=== PATIENT | male | born 1940 | race Caucasian/White ===

== ENCOUNTER → 2019-11-07 08:14 | Outpatient (REF) | payer MEDICARE, OTHER, SELFPAY | LOC: ANHLAB 08:14 | PROVIDERS: PCP Internal Medicine; Visit Provider Nurse Practitioner Family | DX: C44.222 Squamous cell carcinoma of skin of right ear and external auricular canal (principal) | CPT/HCPCS: 88305; 88331 ==

== ENCOUNTER 2020-11-07 17:01 | Emergency (ER) | payer MEDICARE, SELFPAY ==
--- NOTE | ~2020-11-07 | XR_ITS ---
XR knee RT 3V 11/07/2020 17:40 Indication: Right knee pain Procedure: 3 views right knee Comparison: No prior studies for comparison. 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 There is chondrocalcinos is. No acute fracture or traumatic malalignment. No significant joint effusion. Osteopenia. Impression: 1: No acute fracture. Reviewed, dictated and finalized at location A. PTIONIST TELEPHONE OPERATOR Impression: 1: No acute fracture.
--- NOTE | 2020-11-07 17:05 | ED.GENADULT ---
HPI - General Adult General Chief complaint: Extremity Injury, Lower Stated complaint: Twisted right knee Time Seen by Provider: 11/07/20 17:05 Source: patient Mode of arrival: ambulatory Limitations: no limitations History of Present Illness HPI narrative: 80-year-old male patient presents to the [facility] with complaints of right knee pain since yesterday. Patient states he went to go and get stand up at a table and states that he twisted his right knee. Patient states he has been using his walker at home to get around but states it does hurt when walking on the right knee. Patient states it mostly hurts on the lateral side of the knee. Patient denies any numbness or tingling down the leg. Patient states he has tried taking Excedrin as well as some arthritis pain medication [id number] which has not helped. Patient states he has iced it twice since the injury yesterday. Denies any history of knee replacements or knee surgeries. Related Data Home Medications Medication Instructions Recorded Confirmed acetaminophen 500 mg tablet 500 mg PO Q6H PRN 11/07/19 carvedilol 3.125 mg tablet 3.125 mg PO Q12H 11/07/19 lisinopril 10 mg tablet 10 mg PO DAILY 11/07/19 11/07/20 nitroglycerin 0.4 mg sublingual 0.4 mg SUBLINGUAL Q5M PRN 11/07/19 11/07/20 tablet pantoprazole 40 mg tablet,delayed 40 mg PO QAM 11/07/19 11/07/20 release simvastatin 20 mg tablet 20 mg PO DAILY 11/07/19 11/07/20 tamsulosin 0.4 mg capsule 0.4 mg PO DAILY 11/07/19 11/07/20 aspirin-dipyridamole 25 cap PO DAILY 11/07/20 11/07/20 aspirin-dipyridamole cap PO 11/07/20 finasteride 5 mg PO DAILY 11/07/20 11/07/20 Allergies Allergy/AdvReac Type Severity Reaction Status Date / Time Penicillins Allergy Rash Verified 11/14/19 15:59 Review of Systems Review of Systems: Narrative: CONSTITUTIONAL: Denies fever, chills, or sweats. EYES: Denies visual changes, redness, or discharge. ENT: Denies rhinorrhea, congestion, sore throat, or otalgia. CARDIOVASCULAR: Denies chest pain, palpitations, or edema. RESPIRATORY: Denies cough or dyspnea. GASTROINTESTINAL: Denies abdominal pain, nausea, vomiting, or diarrhea. GENITOURINARY: Denies dysuria or hematuria. SKIN: Denies rash or itching. MUSCULOSKELETAL: Denies back pain, joint pain, or myalgia. Positive right knee pain NEUROLOGIC: Denies headache, numbness, or weakness. PSYCHIATRIC: Denies anxiety or depression. [facility] Past Medical History Medical History (Updated 11/07/20 @ 17:58 by AVA Calvert) Enlarged prostate Heart disease High cholesterol Hypertension Social History Social History Smoking status: Never smoker Alcohol intake: never Substance use: never Gender identity (if verbalized by the patient): Male Comments At the time of my signature I agree with nursing past medical history, surgical, social, and family history. There is no relevant family history pertinent to the presenting complaint. Exam Narrative: Exam Narrative: GENERAL: Well-appearing, well-nourished, and in no acute distress. HEAD: Normocephalic, atraumatic. EYES: PERRLA and EOMI. ENT: Nares clear, no rhinorrhea or epistaxis. Mucous membranes moist. NECK: Supple. No lymphadenopathy CHEST: Clear to auscultation. No respiratory distress. HEART: Regular rate and rhythm. No murmur heard. Normal peripheral pulses. ABDOMEN: Soft, nontender, nondistended, normal active bowel sounds. EXTREMITIES: Patient is unable to bear weight and ambulate without pain to right knee. No surface trauma, STS, or obvious effusion. No overlying erythema or warmth. The R knee is without obvious asymmetry or deformity when compared to the L knee. Patient is able to do deep knee bend with symmetry, patient does have pain with fully extend knee, internal and external rotation. No tendernss to palpation of the patella, no obvious effusion or ballottement. No tenderness over the infrapatellar tend
[2020-11-07 17:21] VITALS: BP 151/77; PULSE 69; RESP 18; TEMP 37; O2SAT 99
== END 2020-11-07 18:08 | disposition home or self-care (01) ==
PROVIDERS: Emergency Provider Nurse Practitioner Family; PCP Internal Medicine
DX: M23.91 Unspecified internal derangement of right knee (principal); E78.00 Pure hypercholesterolemia, unspecified; I10 Essential (primary) hypertension; N40.0 Benign prostatic hyperplasia without lower urinary tract symptoms
CPT/HCPCS: 73562; 99213; G0463

== ENCOUNTER 2022-12-17 20:46 | Emergency (ER) | payer MEDICARE, SELFPAY ==
--- NOTE | ~2022-12-17 | CT_ITS ---
EXAMINATION: CT brain wo con DATE: 12/17/2022 21:37 INDICATION: TIA. Numbness. TECHNIQUE: Computed tomography (CT) of the head was performed without intravenous contrast. The dose- length product was 605.33 mGy-cm. Automated exposure control and iterative reconstruction technique w ere employed. COMPARISON: None FINDINGS: Generalized atrophy. 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 Chronic right occi pital lobe infarction. Chronic right cerebellar infarctions. There is intracranial atherosclerosis. N o ventriculomegaly or midline shift. Basilar cisterns are patent. Paranasal sinuses and mastoids are pneumatized. There are metallic structures in the right orbit, possibly foreign bodies or postsurgica l change. Mastoids are pneumatized. No depressed skull fractures. IMPRESSION: 1. No acute intracranial abnormality. 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 3: Chronic age-related findings. Reviewed, dictated and finalized at location A.
[2022-12-17 20:48] VITALS: BP 172/70; PULSE 57; RESP 16; TEMP 36.3; O2SAT 99
[2022-12-17 20:52] LABS: Glucose Point of Care 85 mg/dl (65-105)
--- NOTE | 2022-12-17 20:53 | ECG_ITS ---
Measurements Intervals [place] Rate: 58 P: 87 CT: 215 QRS: 57 QRSD: 98 T: 62 QT: 395 QTc: 388 Interpretive Statements SINUS BRADYCARDIA WITH FIRST DEGREE AV BLOCK EARLY PRECORDIAL R/S TRANSITION CONSIDER INFERIOR INFARCT, AGE INDETERMINATE ABNORMAL ECG NO PREVIOUS ECG AVAILABLE FOR COMPARISON Electronically Signed On 12-18-2022 8:05:40 CDT by Hector Romeo D.O.
[2022-12-17 21:12] LABS: Basophils Percent Auto 0.4 % (0.2-1.2); Eosinophils Absolute Auto 0.3 K/mm3 (0-0.3); Eosinophils Percent Auto 3.4 % (0-4.4); Hematocrit 42.9 % (42.0-52.0); Hemoglobin 14.1 g/dL (14.0-18.0); Immature Granulocyte Absolute 0.02 K/mm3 (0.00-0.031); Immature Granulocyte Percent A 0.2 % (0-0.5); Immature Platelet Fraction Pct 1.4 % (0.9-11.2); Lymphocytes Absolute Auto 5.41 K/mm3 (0.9-3.2); Lymphocytes Percent Auto 59.7 % (18.3-44.2); Mean Corpuscular HGB Conc 32.9 g/dl (32-36); Mean Corpuscular Hemoglobin 32.6 pg (26-34); Mean Corpuscular Volume 99.1 fl (80-100); Mean Platelet Volume 8.9 fl (7.4-10.4); Monocytes Absolute Auto 0.7 K/mm3 (0.1-0.6); Monocytes Percent Auto 7.6 % (2.6-8.5); Neutrophils Absolute Auto 2.6 K/mm3 (1.3-6.7); Neutrophils Percent Auto 28.7 % (45.5-73.1); Platelet Count Result 148 k/mm3 (150-375); Red Blood Count 4.33 M/mm3 (4.6-6.20); Red Cell Distribution Width 13.9 % (11.5-14.5); White Blood Count 9.1 K/mm3 (4.5-10.0)
[2022-12-17 21:21] LABS: Alanine Aminotransferase 24 U/L (6-50); Alkaline Phosphatase 102 U/L (38-126); Anion Gap 4 mmol/L (8-16); Aspartate Amino Transferase 29 U/L (17-59); Bilirubin,Total 0.6 mg/dL (0.2-1.3); Blood Urea Nitrogen 17 mg/dL (9-20); Calcium 9.2 mg/dL (8.4-10.2); Carbon Dioxide 31 mmol/L (22-30); Chloride 108 mmol/L (98-107); Estimated CRCL calculation 58 ml/min; Estimated Glomerular Filt Rate > 60; Glucose 75 mg/dL (65-110); Sodium 143 mmol/L (137-145)
[2022-12-17 21:22] LABS: INR 1.2; Prothrombin Time 14.9 Seconds (11.1-14.7)
[2022-12-17 21:23] LABS: Partial Thromboplastin Time 35.6 SECONDS (22.3-36.8)
[2022-12-17 21:32] LABS: Troponin I < 0.012 ng/mL (0.000-0.034)
--- NOTE | 2022-12-17 21:52 | ED.GENADULT ---
HPI - General Adult General Chief complaint: Neuro Symptoms/Deficit Stated complaint: possible TIA, finger numbness Time Seen by Provider: 12/17/22 23:20 History of Present Illness HPI narrative: This is an 82-year-old male with multiple TIAs in the past with the ED with word finding difficulty and numbness over the 2nd and 3rd finger in his right hand. This occurred at 5:00 p.m. today. At this time he does not currently have symptoms. He has been asymptomatic since then. Patient has had multiple TIAs in the past. He is on Eliquis and ASA/dipyridamole. No other complaints this time. Related Data Home Medications Medication Instructions Recorded Confirmed acetaminophen 500 mg tablet 500 mg PO Q6H PRN 11/07/19 (Tylenol Extra Strength) carvedilol 3.125 mg tablet 3.125 mg PO Q12H 11/07/19 lisinopril 10 mg tablet 10 mg PO DAILY 11/07/19 11/07/20 nitroglycerin 0.4 mg sublingual 0.4 mg sublingual Q5M PRN Chest 11/07/19 11/07/20 tablet Pain pantoprazole 40 mg tablet,delayed 40 mg PO QAM 11/07/19 11/07/20 release simvastatin 20 mg tablet 20 mg PO DAILY 11/07/19 11/07/20 tamsulosin 0.4 mg capsule 0.4 mg PO DAILY 11/07/19 11/07/20 aspirin 25 mg-dipyridamole 200 mg 25 cap PO DAILY 11/07/20 11/07/20 capsule,ext.release 12 hr multiphase aspirin 25 mg-dipyridamole 200 mg cap PO 11/07/20 capsule,ext.release 12 hr multiphase finasteride 5 mg tablet 5 mg PO DAILY 11/07/20 11/07/20 apixaban 5 mg tablet (Eliquis) mg 12/17/22 Allergies Allergy/AdvReac Type Severity Reaction Status Date / Time Penicillins Allergy Rash Verified 12/17/22 20:48 [facility] Past Medical History Medical History (Updated 12/18/22 @ 01:37 by Tony Kent MD) Enlarged prostate Heart disease High cholesterol Hypertension Social History Social History Smoking status: Never smoker Alcohol intake: never Substance use: never Gender identity (if verbalized by the patient): Male Exam Narrative: APPEARANCE: No apparent distress. Head: atraumatic. EYES: EOMI, NOSE: Atraumatic NECK: Trachea midline RESPIRATORY: No increased rate of breathing CARDIOVASCULAR: RRR, ABDOMINAL: Non-distended MUSCULOSKELETAl: No obvious deformities NEURO: Alert. Moving 4/4 extremities SKIN:: Warm, dry. Normal color PSYCHIATRIC: Normal affect NIH Stroke Scale/Score (NIHSS) from [employer] on 12/17/2022 All calculations should be rechecked by clinician prior to use RESULT SUMMARY: 0 points NIH Stroke Scale INPUTS: 1A: Level of consciousness ?> 0 = Alert; keenly responsive 1B: Ask month and age ?> 0 = Both questions right 1C: 'Blink eyes' & 'squeeze hands' ?> 0 = Performs both tasks 2: Horizontal extraocular movements ?> 0 = Normal 3: Visual almonte ?> 0 = No visual loss 4: Facial palsy ?> 0 = Normal symmetry 5A: Left arm motor drift ?> 0 = No drift for 10 seconds 5B: Right arm motor drift ?> 0 = No drift for 10 seconds 6A: Left leg motor drift ?> 0 = No drift for 5 seconds 6B: Right leg motor drift ?> 0 = No drift for 5 seconds 7: Limb Ataxia ?> 0 = No ataxia 8: Sensation ?> 0 = Normal; no sensory loss 9: Language/aphasia ?> 0 = Normal; no aphasia 10: Dysarthria ?> 0 = Normal 11: Extinction/inattention ?> 0 = No abnormality Course Vital Signs Vital signs: Vital Signs Temperature 97.4 F L 12/17/22 20:48 Pulse Rate 57 L 12/17/22 20:48 Respiratory Rate 16 12/17/22 20:48 Blood Pressure 172/70 H 12/17/22 20:48 Pulse Oximetry 99 12/17/22 20:48 Oxygen Delivery Room Air 12/17/22 20:48 Temperature 97.4 F L 12/17/22 20:48 Pulse Rate 61 12/17/22 22:51 Respiratory Rate 16 12/17/22 20:48 Blood Pressure 162/77 H 12/17/22 22:51 Pulse Oximetry 97 12/17/22 22:51 Oxygen Delivery Room Air 12/17/22 20:48 Medical Decision Making MDM Narrative Medical decision making narrative: -Presentation:This is an 82-year-old male presenting with neurolo
[2022-12-17 22:51] VITALS: BP 162/77; PULSE 61; O2SAT 97
[2022-12-18 01:53] VITALS: BP 159/76; PULSE 67; RESP 18; O2SAT 98
== END 2022-12-18 01:56 | disposition home or self-care (01) ==
PROVIDERS: Emergency Medicine; Emergency Provider Emergency Medicine; PCP Internal Medicine
DX: G45.9 Transient cerebral ischemic attack, unspecified (principal); I11.9 Hypertensive heart disease without heart failure; E78.5 Hyperlipidemia, unspecified; Z79.82 Long term (current) use of aspirin; Z79.01 Long term (current) use of anticoagulants
CPT/HCPCS: 36415; 70450; 80053; 82948; 84484; 85025; 85055; 85610; 85730; 93005; 99284